=== PATIENT | female | born 1990 | race Caucasian/White ===

== ENCOUNTER 2024-04-27 04:27 | Emergency (ER) | payer OTHER, SELFPAY ==
[2024-04-27 04:33] VITALS: BP 125/66; PULSE 90; TEMP 36.8; O2SAT 98; BMI 44.6
--- NOTE | 2024-04-27 04:39 | XR_ITS ---
The [address] [address] Patient Name: ELIUD ANGULO MRN: [id number] date: 1990 Sex: F Assigned Patient Location: ED.MAIN Current Patient Location: ER Accession/Order Number: [id number] Exam Date: 04/27/2024 04:57 Report Date: 04/27/2024 05:21 At the request of: PATRICK MIR Procedure: XR knee LT 4V EXAM: XR knee LT 4V HISTORY: fall . Fell down stairs. COMPARISON: None. TECHNIQUE: 4 view left knee. FINDINGS: 4 views demonstrate no acute fracture, subluxation or dislocation. Well-preserved joints with no joint effusion. Normal osseous structures. Normal bone mineralization. No osseous lesion. Normal soft tissues. XR/XR knee LT 4V IMPRESSION: Normal 4 view left knee. No acute bone or joint findings. Electronically authenticated by: BALDEV HAQUE Date: 04/27/2024 05:21
--- NOTE | 2024-04-27 04:47 | XR_ITS ---
The [address] [address] Patient Name: ELIUD ANGULO MRN: [id number] date: 1990 Sex: F Assigned Patient Location: ED.MAIN Current Patient Location: ER Accession/Order Number: [id number] Exam Date: 04/27/2024 04:57 Report Date: 04/27/2024 05:26 At the request of: PATRICK MIR Procedure: XR femur LT 2V EXAM: XR femur LT 2V HISTORY: Fall injury , left knee pain COMPARISON: Left femur and knee x-rays 04/27/2024 TECHNIQUE: 4 views left femur x-rays FINDINGS: No acute fracture line, dislocation, or focal osseous erosion. No radiopaque foreign body. XR/XR femur LT 2V IMPRESSION: No radiographic evidence for acute bony injury. Electronically authenticated by: JUAN MOSLEY Date: 04/27/2024 05:26
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
[2024-04-27] MEDS: IBUPROFEN 400 MG TABLET 800 MG PO (05:10)
[2024-04-27 06:00] VITALS: BP 124/66; PULSE 63; O2SAT 98
== END 2024-04-27 06:05 | disposition home or self-care (01) ==
PROVIDERS: Emergency Provider Internal Medicine
DX: S83.92XA Sprain of unspecified site of left knee, initial encounter (principal); W10.9XXA Fall (on) (from) unspecified stairs and steps, initial encounter
CPT/HCPCS: 73552; 73564; 99284